=== PATIENT | male | born 1980 | race Caucasian/White ===

== ENCOUNTER 2017-03-22 20:14 | Inpatient (IN) | payer MEDICARE ==
[~2017-03-22] VITALS: Ht 190.5 cm; Wt 158.8 kg
[2017-03-22 21:17] VITALS: BP 91/60
--- NOTE | 2017-03-22 21:30 | NUR ---
TELE 1 RN NOTE DIRECT ADMITTED 37 YEARS OLD MALE PT FROM [facility]. PT IS A/O X 4, SOB ON EXACERBATION. DENIES PAIN. SKIN INTACT. ON TELE V PACING HR 86. BILATERAL LOWER EXT'S WITH PITTING EDEMA +2. KEPT THE LEGS ELEVATED. ADMITTING ORDERES BY DUSTIN OBRIEN CHECKED AND CARRIED OUT. OREINTED THE PT TO HIS ROOM. VSS . ALL NEEDS CHECKED. SIDE RAILS UP X 2 AND CALL LIGHT WITHIN REACH. B/P ON LOW SIDE. 91/60. CONTINUE TO MONITOR HIM.
[2017-03-22] MEDS ORDERED: CARV25TA2 PO (21:32)
[2017-03-22] MEDS ORDERED: MIDO5TAB PO (21:32)
[2017-03-22] MEDS ORDERED: ATOR10TA PO (21:32)
[2017-03-22] MEDS ORDERED: FURO80TA85 PO (21:32)
[2017-03-22] MEDS ORDERED: LISI2.5T2 PO (21:32)
[2017-03-22] MEDS ORDERED: Z GUARD REMEDY 2 OZ OINT TP PRN (22:00)
[2017-03-22] MEDS ORDERED: ONDANSETRON HCL/PF 4 MG/2 ML VIAL IVP PRN (22:00)
[2017-03-22] MEDS: ALBUTEROL FS 2.5 MG/3 ML VIAL.NEB NEB SCH (22:00)
[2017-03-22] MEDS ORDERED: ZOLPIDEM TARTRATE 5 MG TABLET PO PRN (22:00)
[2017-03-22] MEDS ORDERED: HYDROCODONE/APAP 5/325MG 1 EACH TABLET PO PRN (22:00)
[2017-03-22] MEDS ORDERED: ACETAMINOPHEN 325 MG TABLET PO PRN (22:00)
[2017-03-22] MEDS ORDERED: ALBUTEROL FS 2.5 MG/3 ML VIAL.NEB NEB PRN (22:00)
[2017-03-22] MEDS ORDERED: MAG HYDROX/AL HYDROX/SIMETH 30 ML UDC PO PRN (22:00)
[2017-03-22] MEDS ORDERED: ATORVASTATIN 10 MG TABLET ONE (22:05)
[2017-03-22] MEDS ORDERED: ZOLPIDEM TARTRATE 5 MG TABLET ONE (22:05)
[2017-03-22] MEDS: ATORVASTATIN 10 MG TABLET PO SCH (22:09)
[2017-03-22 23:17] LABS: BASOPHILS # (AUTO) 0.1 /CMM (0.0-0.2); BASOPHILS % (AUTO) 1.1 % (0.0-2.0); EOSINOPHILS # (AUTO) 0.2 /CMM (0.0-0.7); EOSINOPHILS % (AUTO) 1.4 % (0.0-6.0); HEMATOCRIT 42 % (39-51); HEMOGLOBIN 13.8 g/dL (13.5-17.5); LYMPHOCYTES # (AUTO) 2.6 /CMM (0.8-4.8); LYMPHOCYTES % (AUTO) 21.4 % (20.0-44.0); MEAN CORPUSCULAR HEMOGLOBIN 28 PG (26.0-33.0); MEAN CORPUSCULAR HGB CONC 33 g/dl (31.0-36.0); MEAN CORPUSCULAR VOLUME 86 fL (80-96); MONOCYTES # (AUTO) 0.9 /CMM (0.1-1.30); MONOCYTES % (AUTO) 7.3 % (2.0-12.0); NEUTROPHILS # (AUTO) 8.5 /CMM (1.8-8.9); NEUTROPHILS % (AUTO) 68.8 % (43.0-81.0); PLATELET COUNT (AUTO) 323 /CMM (150-450); RED BLOOD CELL COUNT(AUTO) 4.88 MIL/uL (4.5-6.0); WHITE BLOOD COUNT (AUTO) 12.3 K/uL (4.3-11.0)
[2017-03-22 23:39] LABS: TROPONIN I 0.053 ng/mL (0.00-0.056)
[2017-03-22 23:42] LABS: ALBUMIN 3.5 g/dL (3.4-5.0); BILIRUBIN,TOTAL 1.5 mg/dL (0.2-1.0); CALCIUM, SERUM 8.8 mg/dL (8.5-10.1); CREATININE 2.1 mg/dL (0.6-1.3); MAGNESIUM 1.5 mg/dL (1.8-2.4); PHOSPHORUS 3.9 mg/dL (2.5-4.9); POTASSIUM 3.7 mmol/L (3.5-5.1); TOTAL PROTEIN, SERUM 7.7 g/dL (6.4-8.2)
[2017-03-22 23:45] LABS: THYROID STIMULATING HORMONE 5.242 uIU/mL (0.358-3.74)
[2017-03-23] VITALS (7 sets, daily range): BP systolic 88–142; BP diastolic 54–82
[2017-03-23] MEDS: ALBUTEROL FS 2.5 MG/3 ML VIAL.NEB NEB SCH ×4 (01:34→19:10)
[2017-03-23] MEDS ORDERED: Magnesium 1GM/D5W 100ML PREMIX 100 ML IV ONE ×2 (01:51→01:53)
[2017-03-23] MEDS ORDERED: BUMETANIDE INJ 0.25 MG/ML VIAL ONE (01:51)
[2017-03-23] MEDS: Magnesium 1GM/D5W 100ML PREMIX 100 ML IV SCH ×2 (01:55→03:14)
[2017-03-23] MEDS: BUMETANIDE INJ 0.25 MG/ML VIAL IV SCH ×2 (02:00→03:24)
--- NOTE | 2017-03-23 02:00 | NUR ---
TELE 1 RN NOTE PT C/O PAIN IN RAC S/L SITE. DC'D THE S/L AND SECURED WITH 2X2 GAUZE. REINSERTED NEW LINE #22 G WITH GOOD BACK FLOW OF BLOOD. STARTED MAG 1 GM ORDERED. ALSO INFORMED MICAH CHAN THAT B/P IS LOW 88/[address] HOLLAND ORDERED BUMAX PER GAMING CASHIER HOLD THE BUMAX FOR NOW. ORDERED NOTED AND CARRIED OUT. Addendum: 03/23/17 at 0333 by HOA WYMAN RN PER GAMING CASHIER GIVE BUMAX WHEN B/P IS HIGHER
--- NOTE | 2017-03-23 03:31 | NUR ---
TELE 1 RN NOTE B/P CAME UP TO 122/70 HR 82, BUMAX 1 MG IV GIVEN ORDERED.
--- NOTE | 2017-03-23 06:20 | NUR ---
TELE 1 RN NOTE PT IN BED ASLEEP, AROUSABLE. NO DISTRESS OR DISCOMFORT NOTED. DENIES PAIN. ON TELE V PACING HR 78. S/L IN RFA #22 G INTACT AND PATENT. ALL NEEDS ATTENDED. SIDE RAILS UP X 3 AND CALL LIGHT WITHIN REACH. WILL ENDORSE TO DAY SHIFT NURSE FOR CONTINUE TO CARE.
[2017-03-23 06:26] LABS: APPEARANCE,URINE CLEAR (CLEAR); BILIRUBIN,URINE NEGATIVE (NEGATIVE); BLOOD, URINE NEGATIVE Ery/uL (NEGATIVE); COLOR,URINE YELLOW (YELLOW); KETONES,URINE NEGATIVE (NEGATIVE); LEUKOCYTE ESTERASE ,URINE NEGATIVE (NEGATIVE); NITRITE, URINE NEGATIVE (NEGATIVE); PH,URINE 5.5 (5.0-8.0); PROTEIN,URINE NEGATIVE (NEGATIVE); UGLUCOSE NEGATIVE (NEGATIVE); UROBILINOGEN,URINE 0.2 EU/dL (0.2)
--- NOTE | 2017-03-23 07:48 | NUR ---
RN NOTES RECEIVED PT IN STABLE CONDITION. A&0X3, RESTING IN BED. ON ROOM AIR SATING WELL NO SOB OR DISTRESS. V PACING ON THE TELE ARMAAN HR 105. RAC 20G INTACT NO IVF. BED LOCKED AND IN LOWEST POSITION, CALL LIGHT WITHIN REACH, SIDE RAILS UPX3, WILL CONT TO ARMAAN.
[2017-03-23 08:37] LABS: BASOPHILS # (AUTO) 0.1 /CMM (0.0-0.2); BASOPHILS % (AUTO) 0.8 % (0.0-2.0); EOSINOPHILS # (AUTO) 0.1 /CMM (0.0-0.7); HEMATOCRIT 41 % (39-51); HEMOGLOBIN 13.6 g/dL (13.5-17.5); LYMPHOCYTES # (AUTO) 2.8 /CMM (0.8-4.8); LYMPHOCYTES % (AUTO) 23.5 % (20.0-44.0); MEAN CORPUSCULAR HEMOGLOBIN 29 PG (26.0-33.0); MEAN CORPUSCULAR HGB CONC 33 g/dl (31.0-36.0); MEAN CORPUSCULAR VOLUME 87 fL (80-96); MONOCYTES # (AUTO) 1.1 /CMM (0.1-1.30); MONOCYTES % (AUTO) 9.5 % (2.0-12.0); NEUTROPHILS # (AUTO) 7.8 /CMM (1.8-8.9); NEUTROPHILS % (AUTO) 65.2 % (43.0-81.0); PLATELET COUNT (AUTO) 303 /CMM (150-450); RDW COEFFICIENT OF VARIATION 15.8 (11.5-15.0); RED BLOOD CELL COUNT(AUTO) 4.69 MIL/uL (4.5-6.0); WHITE BLOOD COUNT (AUTO) 11.9 K/uL (4.3-11.0)
--- NOTE | 2017-03-23 08:44 | NUR ---
PATIENT REFUSED BREATHING TREATMENT AND STATES HE DOES NOT NEED IT. PATIENT WAS EDUCATED ON THE IMPORTANCE OF FOLLOWING MD ORDERS AND SAYS HE WILL FOLLOW UP WITH HIS PHYSICIAN. WILL CONTINUE TO CHECK PATIENT ROUTINELY.
[2017-03-23] MEDS: LISINOPRIL (5MG) 5 MG TABLET PO SCH (08:45)
[2017-03-23] MEDS: ASPIRIN 81 MG TAB.CHEW PO SCH (08:45)
[2017-03-23] MEDS: CARVEDILOL 12.5 MG TABLET PO SCH ×2 (08:45→20:57)
[2017-03-23] MEDS: MIDODRINE HCL (5MG) 5 MG TABLET PO SCH ×2 (08:46→12:33)
[2017-03-23] MEDS ORDERED: BUMETANIDE (1 MG) 1 MG TABLET PO SCH (09:00)
[2017-03-23 09:16] LABS: CALCIUM, SERUM 8.7 mg/dL (8.5-10.1); CREATININE 1.8 mg/dL (0.6-1.3); MAGNESIUM 1.8 mg/dL (1.8-2.4); PHOSPHORUS 4.1 mg/dL (2.5-4.9); POTASSIUM 3.9 mmol/L (3.5-5.1)
--- NOTE | 2017-03-23 11:00 | NUR ---
RN NOTES PT HAD ONE EPISODE OF VOMITING, PT STATES HE ATTEMPTED TO HAVE A BOWEL MOVEMENT, FELT CONSTIPATED AND WHEN HE PUSHED TOO HARD HE STARTED VOMITING. ZOFRAN AND STOOL SOFTENER GIVEN. WILL CONT TO ARMAAN.
[2017-03-23] MEDS: MAGNESIUM HYDROXIDE 30 ML UDC PO PRN (11:34)
[2017-03-23] MEDS: FUROSEMIDE 100 MG/10 ML VIAL IV SCH ×3 (14:10→20:56)
--- NOTE | 2017-03-23 18:33 | NUR ---
RN NOTES PT REMAINED IN STABLE CONDITION THROUGHOUT THE SHIFT, NO SIGNIFICANT CHANGES. ALL NEEDS MET. WILL ENDORSE TO ONCOMING SHIFT.
[2017-03-23] MEDS: ATORVASTATIN 10 MG TABLET PO SCH (21:06)
--- NOTE | 2017-03-23 21:45 | NUR ---
RN NOTES, PATIENT ALERT AND ORIENTED , NO S/S OF ANY DISTRESS OR DISCOMFORT NOTED AT THIS TIME, PATIENT IS TRANSFERRED TO [facility], REPORT GIVEN TO RN, AND REPORTED TO HER THAT PATIENT JUST CALLED NURSE TO ROOM TO ASK FOR ANDERSON CATHETER INSERTION, PATIENT STATES THAT HE FEELS LIKE HE IS NOT HAVING ENOUGH URINARY OUTPUT, SINCE PATIENT IS TRANSFER TO ANOTHER FLOOR ENDORSE THIS TO RN IN CHARGE.
[2017-03-24] VITALS: BP 99/62
--- NOTE | 2017-03-24 00:15 | NUR ---
MS RN NOTES RECEIVED PT FROM ROSEMARIE ALERT,ORIENTED X4, VERBALLY RESPONSIVE,ON ROOM AIR,NO RESPIRATORY DISTRESS NOTED. IV SITE RT AC INTACT, PATENT.BODY ASSESSMENT DONE-SKIN INTACT.DENIES ANY PAIN OR DISCOMFORT AT THIS TIME.CALL LIGHT WITHIN REACH.WILLCONTINUE TO MONITOR ACCORDINGLY.
--- NOTE | 2017-03-24 00:50 | NUR ---
MS RN NOTES PT VERBALIZED CONCERN THAT IS HAVING DIFFICULTIES URINATING, ASSESSMENT DONE NO BLADDER DISTENTION NOTED.DUSTIN SMITH NOTIFIED, ORDERED BLADDER SCAN . NOTED 68ML URINE ON BLADDER SCAN. WILL CONTINUE TO MONITOR ACCORDINGLY
[2017-03-24 00:52] VITALS: BP 99/62
[2017-03-24] MEDS: ALBUTEROL FS 2.5 MG/3 ML VIAL.NEB NEB SCH ×4 (01:23→19:55)
--- NOTE | 2017-03-24 06:15 | NUR ---
MS RN NOTES PT IN BED,RESTING COMFORTABLY,ON ROOM AIR,NO SOB,NO APPARENT DISTRESS NOTED.IV SITE INTACT, DENIES ANY PAIN OR DISCOMFORT AT THIS TIME .KEPT CLEAN AND COMFORTABLE.ATTENDED ALL NEEDS
--- NOTE | 2017-03-24 07:30 | NUR ---
MS RN OPENING NOTES RECEIVED PATIENT IN STABLE CONDITION. PATIENT IS ALERT AND ORIENTED. IN NO APPARENT DISTRESS. BEDSIDE RAILS ARE UP X2. BED IS LOCKED AND LOWERED. CALL LIGHT IS WITHIN REACH. WILL CONTINUE TO MONITOR.
--- NOTE | 2017-03-24 07:35 | NUR ---
PATIENT REFUSED BREATHING TREATMENT
[2017-03-24 08:00] VITALS: BP 101/70
[2017-03-24] MEDS: CARVEDILOL 12.5 MG TABLET PO SCH ×2 (08:36→20:44)
[2017-03-24] MEDS: LISINOPRIL (5MG) 5 MG TABLET PO SCH (08:37)
[2017-03-24] MEDS: ASPIRIN 81 MG TAB.CHEW PO SCH (08:37)
[2017-03-24 08:39] LABS: BASOPHILS # (AUTO) 0.1 /CMM (0.0-0.2); BASOPHILS % (AUTO) 0.9 % (0.0-2.0); EOSINOPHILS # (AUTO) 0.1 /CMM (0.0-0.7); EOSINOPHILS % (AUTO) 0.7 % (0.0-6.0); HEMATOCRIT 39 % (39-51); HEMOGLOBIN 12.9 g/dL (13.5-17.5); LYMPHOCYTES # (AUTO) 2.2 /CMM (0.8-4.8); LYMPHOCYTES % (AUTO) 22.3 % (20.0-44.0); MEAN CORPUSCULAR HEMOGLOBIN 29 PG (26.0-33.0); MEAN CORPUSCULAR HGB CONC 33 g/dl (31.0-36.0); MEAN CORPUSCULAR VOLUME 87 fL (80-96); MONOCYTES % (AUTO) 10.5 % (2.0-12.0); NEUTROPHILS # (AUTO) 6.3 /CMM (1.8-8.9); NEUTROPHILS % (AUTO) 65.6 % (43.0-81.0); PLATELET COUNT (AUTO) 268 /CMM (150-450); RED BLOOD CELL COUNT(AUTO) 4.46 MIL/uL (4.5-6.0); WHITE BLOOD COUNT (AUTO) 9.7 K/uL (4.3-11.0)
[2017-03-24] MEDS: MAGNESIUM HYDROXIDE 30 ML UDC PO PRN (08:42)
[2017-03-24 08:47] LABS: CALCIUM, SERUM 8.6 mg/dL (8.5-10.1); CREATININE 1.8 mg/dL (0.6-1.3); MAGNESIUM 1.7 mg/dL (1.8-2.4); PHOSPHORUS 4.3 mg/dL (2.5-4.9); POTASSIUM 3.5 mmol/L (3.5-5.1)
[2017-03-24] MEDS: FUROSEMIDE 80 MG TABLET PO SCH (09:12)
[2017-03-24] MEDS: POTASSIUM CHLORIDE 20 MEQ TAB.PRT.SR PO SCH (09:12)
[2017-03-24] MEDS: Magnesium 1GM/D5W 100ML PREMIX 100 ML IV SCH ×2 (11:40→13:10)
[2017-03-24] MEDS: METOLAZONE 2.5 MG TABLET PO SCH (13:13)
[2017-03-24] MEDS: COLCHICINE 0.6 MG TABLET PO SCH (13:27)
[2017-03-24 16:00] VITALS: BP 99/54
--- NOTE | 2017-03-24 18:52 | NUR ---
MS RN CLOSING NOTES PATIENT IS IN NO APPARENT DISTRESS. PATIENT IS ALERT. ALL NEEDS WERE MET. BEDSIDE RAILS ARE UP X2. BED IS LOCKED AND LOWERED. CALL LIGHT IS WITHIN REACH. WILL ENDORSE CARE TO DOOR MANAGER NURSE FOR JOSEPHINE.
--- NOTE | 2017-03-24 19:30 | NUR ---
MS RN NOTE: PATIENT RESTING IN BED, NO ACUTE DISTRESS NOTED. BREATHING EVEN AND UNLABORED, NO SOB NOTED. IV TO RAC IN PLACE. BED LOCKED AND IN LOWEST POSITION, CALL LIGHT IN REACH. WILL CONTINUE TO MONITOR.
[2017-03-24 20:00] VITALS: BP 104/57
--- NOTE | 2017-03-24 21:15 | NUR ---
MS RN NOTE: PATIENT SITTING UP IN BED, NO ACUTE DISTRESS NOTED. REPORT GIVEN TO SAMANTHA GRIGSBY TO CONTINUE WITH PLAN OF CARE.
--- NOTE | 2017-03-24 21:15 | NUR ---
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 PT AT THIS TIME IN BED AWAKE, ALERT AND ORIENTED. BREATHING NON LABORED. NOT IN DISTRESS. HL ON RFA INTACT. DENIES PAIN. BED ON LOWER POSITION AND LOCKED FOR SAFETY. UPPER PART OF BED SIDE RAILS ARE UP FOR SAFETY. CALL LIGHT WITHIN REACH. NOTED URINAL WITH 75 ML YELLOW URINE. CONTINUE TO MONITOR.
[2017-03-24] MEDS: ATORVASTATIN 10 MG TABLET PO SCH (21:40)
--- NOTE | 2017-03-24 22:45 | NUR ---
MS/FLIGHT OPERATIONS ENGINEER; PT NOTED WALKING AROUND THE HALLWAY.
[2017-03-25] MEDS: ALBUTEROL FS 2.5 MG/3 ML VIAL.NEB NEB SCH ×3 (01:21→13:30)
--- NOTE | 2017-03-25 06:10 | NUR ---
MS/CHARTER BUS DRIVER; PT. SLEPT AT GOOD INTERVALS LAST NIGHT. VOIDED USED URINAL TOTAL 475 ML YELLOW URINE. BREATHING NON LABORED. DENIES PAIN. CONTINUE TO MONITOR . CALL LIGHT WITHIN REACH. WILL ENDORSE TO THE DAY SHIFT NURSE.
--- NOTE | 2017-03-25 07:10 | NUR ---
RN NOTES PT IS SITTING AT THE EDGE OF THE BED, ALERT AND ORIENTED. PT ON RA, RESPIRATIONS ARE EVEN AND UNLABORED. IV ON RFA INTACT AND SL. NO SIGNS OF DISTRESS NOTED. SAFETY MEASURES ARE IN PLACE, CALL LIGHT IS IN REACH. WILL CONTINUE TO MONITOR.
[2017-03-25 08:00] VITALS: BP 133/77
[2017-03-25] MEDS: FUROSEMIDE 80 MG TABLET PO SCH (08:05)
[2017-03-25] MEDS: LISINOPRIL (5MG) 5 MG TABLET PO SCH (08:05)
[2017-03-25] MEDS: ASPIRIN 81 MG TAB.CHEW PO SCH (08:05)
[2017-03-25] MEDS: POTASSIUM CHLORIDE 20 MEQ TAB.PRT.SR PO SCH (08:05)
[2017-03-25] MEDS: COLCHICINE 0.6 MG TABLET PO SCH (08:05)
[2017-03-25 08:06] VITALS: BP 133/77
[2017-03-25] MEDS: CARVEDILOL 12.5 MG TABLET PO SCH (08:06)
[2017-03-25] MEDS: METOLAZONE 2.5 MG TABLET PO SCH (08:06)
[2017-03-25 08:25] LABS: BASOPHILS % (AUTO) 0.4 % (0.0-2.0); EOSINOPHILS # (AUTO) 0.1 /CMM (0.0-0.7); EOSINOPHILS % (AUTO) 1.1 % (0.0-6.0); HEMATOCRIT 42 % (39-51); HEMOGLOBIN 14.1 g/dL (13.5-17.5); LYMPHOCYTES # (AUTO) 3.1 /CMM (0.8-4.8); LYMPHOCYTES % (AUTO) 25.5 % (20.0-44.0); MEAN CORPUSCULAR HEMOGLOBIN 29 PG (26.0-33.0); MEAN CORPUSCULAR HGB CONC 34 g/dl (31.0-36.0); MEAN CORPUSCULAR VOLUME 85 fL (80-96); MONOCYTES # (AUTO) 1.3 /CMM (0.1-1.30); NEUTROPHILS # (AUTO) 7.6 /CMM (1.8-8.9); PLATELET COUNT (AUTO) 378 /CMM (150-450); RDW COEFFICIENT OF VARIATION 15.3 (11.5-15.0); RED BLOOD CELL COUNT(AUTO) 4.93 MIL/uL (4.5-6.0); WHITE BLOOD COUNT (AUTO) 12.1 K/uL (4.3-11.0)
[2017-03-25 08:40] LABS: ALBUMIN 3.5 g/dL (3.4-5.0); BILIRUBIN,TOTAL 2.6 mg/dL (0.2-1.0); CALCIUM, SERUM 9.1 mg/dL (8.5-10.1); CREATININE 2.1 mg/dL (0.6-1.3); PHOSPHORUS 4.8 mg/dL (2.5-4.9); POTASSIUM 3.9 mmol/L (3.5-5.1); TOTAL PROTEIN, SERUM 7.8 g/dL (6.4-8.2)
[2017-03-25] MEDS ORDERED: ASPI-1169 PO (14:20)
[2017-03-25] MEDS ORDERED: POTA20TA83 PO (14:20)
--- NOTE | 2017-03-25 15:12 | NUR ---
RN NOTES PT WAS DISCHARGED HOME IN STABLE CONDITION ACCOMPANIED BY HIS FRIEND. IV AND ID BAND WERE REMOVED. DISCHARGE INSTRUCTIONS WERE GIVEN AND PT WAS INSTRUCTED TO FOLLOW UP WITH DR. ESPARZA AND HIS PCP. PT VERBALIZED UNDERSTANDING. NEW PRESCRIPTION WAS PROVIDED TO PT AND INSTRUCTED TO GET IT FILLED AT HIS PREFERRED PHARMACY.
[2017-03-30 10:13] LABS: CALCITRIOL VIT D,1, 25 DIHYDRO 13.8 pg/mL (19.9-79.3)
== END 2017-03-25 15:27 | disposition home or self-care (01) | DRG 291 ==
LOC: TELE1 20:14 → MEDSG1 03-23 13:06 → MED 03-23 23:47
PROVIDERS: ADMIT Internal Medicine; ATTEND Internal Medicine
DX: I13.0 Hypertensive heart and chronic kidney disease with heart failure and stage 1 through stage 4 chronic kidney disease, or unspecified chronic kidney disease (principal); I50.23 Acute on chronic systolic (congestive) heart failure; N17.0 Acute kidney failure with tubular necrosis; Z68.41 Body mass index [BMI] 40.0-44.9, adult; D63.8 Anemia in other chronic diseases classified elsewhere; D72.829 Elevated white blood cell count, unspecified; E03.9 Hypothyroidism, unspecified; E66.01 Morbid (severe) obesity due to excess calories; E78.5 Hyperlipidemia, unspecified; G89.29 Other chronic pain; K21.9 Gastro-esophageal reflux disease without esophagitis; M10.9 Gout, unspecified; Z87.891 Personal history of nicotine dependence; I42.8 Other cardiomyopathies; N18.3 Chronic kidney disease, stage 3 (moderate); Z95.810 Presence of automatic (implantable) cardiac defibrillator; E83.9 Disorder of mineral metabolism, unspecified; B19.20 Unspecified viral hepatitis C without hepatic coma
CPT/HCPCS: 36415; 71010-TC; 80048-TC; 80053-TC; 80061-TC; 81000-TC; 82306; 82652; 82746; 82962-TC; 83540-TC; 83735-TC; 83880; 83970; 84100-TC; 84443-TC; 84484-TC; 84550-TC; 85025-TC; 87081-TC; 87086-TC; 93307-TC; J1940; J2405; J3475; J3490; Z7610